=== PATIENT | female | born 1995 | race Caucasian/White ===

== ENCOUNTER 2020-03-09 13:48 | Outpatient (REF) | payer MEDICAID, SELFPAY | END 2020-03-09 13:49 | disposition home or self-care (01) | LOC: HO.LAB 13:48 | PROVIDERS: Visit Provider Internal Medicine | DX: Z20.828 Contact with and (suspected) exposure to other viral communicable diseases (principal) | CPT/HCPCS: 36415; C9803; U0003 ==

== ENCOUNTER → 2020-06-09 12:57 | Outpatient (BNVA) | payer MEDICAID, SELFPAY | PROVIDERS: Visit Provider Advanced Practice Midwife | DX: Z32.01 Encounter for pregnancy test, result positive (principal) | CPT/HCPCS: 99212 ==

== ENCOUNTER 2021-03-09 13:40 | Emergency (ER) | payer OTHER, MEDICAID, SELFPAY ==
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
[2021-03-09 14:49] VITALS: BP 136/72; PULSE 91; RESP 14; TEMP 36.8; O2SAT 100; BMI 35.9
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
== END 2021-03-09 17:29 | disposition home or self-care (01) ==
PROVIDERS: Emergency Provider Emergency Medicine
DX: S16.1XXA Strain of muscle, fascia and tendon at neck level, initial encounter (principal); V43.62XA Car passenger injured in collision with other type car in traffic accident, initial encounter; Y93.89 Activity, other specified; Y92.414 Local residential or business street as the place of occurrence of the external cause; Y99.9 Unspecified external cause status
CPT/HCPCS: 72125; 73030; 99283; 99284

== ENCOUNTER 2022-04-11 12:18 | Outpatient (REF) | payer MEDICAID, SELFPAY ==
--- NOTE | ~2022-04-11 | US_ITS ---
EXAMINATION: US DIAGNOSTIC ULTRASOUND BREAST, LEFT CLINICAL INFORMATION: Left breast pain 10:00 position. COMPARISON: None. TECHNIQUE: Ultrasound of the breast is performed with real-time ellis scale imaging and color Doppler. FINDINGS: There is no focal suspicious finding. There is no solid mass, architectural abnormality, duct ectasia, or edema in the soft tissue planes. Results are discussed with the patient at time of visit. US/US breast LT limited IMPRESSION: No suspicious left breast ultrasound findings in region of patient's pain. ASSESSMENT: BI-RADS 1: Negative RECOMMENDATION: Annual mammography at age 42. Clinical follow-up for patient's pain.
--- NOTE | ~2022-04-11 | US_ITS ---
EXAMINATION: US DIAGNOSTIC ULTRASOUND BREAST, RIGHT CLINICAL INFORMATION: Bilateral breast pain. COMPARISON: None. TECHNIQUE: Ultrasound of the breast is performed with real-time ellis scale imaging and color Doppler. FINDINGS: There is no focal suspicious finding. There is no solid mass, architectural abnormality, duct ectasia, or edema in the soft tissue planes. Results are discussed with the patient at time of visit. US/US breast RT limited IMPRESSION: No suspicious ultrasound findings of the right breast identified in region of patient's pain. ASSESSMENT: BI-RADS 1: Negative RECOMMENDATION: Yearly mammogram starting at age 40. This patient's information was entered into a reminder system with a target due date for their next mammogram.
== END 2022-04-11 12:19 | disposition home or self-care (01) ==
LOC: HO.MAMMO 12:18
PROVIDERS: PCP Registered Nurse; Visit Provider Registered Nurse
DX: N64.4 Mastodynia (principal)
CPT/HCPCS: 76642

== ENCOUNTER 2022-10-17 11:16 | Outpatient (REF) | payer MEDICAID, SELFPAY ==
--- NOTE | ~2022-10-17 | XR_ITS ---
EXAMINATION: XR CHEST CLINICAL INFORMATION: Dry cough and right-sided pain. COMPARISON: None available. TECHNIQUE: 2 views of the chest were obtained. FINDINGS: No significant abnormality is noted involving the heart, lungs, mediastinum, bony thorax or soft tissues. XR/XR chest 2V IMPRESSION: No acute cardiopulmonary process.
== END 2022-10-17 11:17 | disposition home or self-care (01) ==
LOC: HO.HHCX 11:16
PROVIDERS: Visit Provider Registered Nurse
DX: R05.8 Other specified cough (principal)
CPT/HCPCS: 71046